=== PATIENT | female | born 1945 | race Caucasian/White ===

== ENCOUNTER → 2024-10-07 | Outpatient (BNVA) | payer MEDICARE, MEDICAID, SELFPAY | END | disposition home or self-care (01) | PROVIDERS: PCP Hospitalist; Referring Provider Hospitalist; Visit Provider Urology | DX: N39.46 Mixed incontinence (principal); N20.0 Calculus of kidney; I10 Essential (primary) hypertension; E11.9 Type 2 diabetes mellitus without complications; I48.91 Unspecified atrial fibrillation; K21.9 Gastro-esophageal reflux disease without esophagitis | CPT/HCPCS: 99212; G0463 ==

== ENCOUNTER → 2025-03-24 | Outpatient (BNVA) | payer MEDICARE, MEDICAID, SELFPAY | END | disposition home or self-care (01) | PROVIDERS: PCP Hospitalist; Referring Provider Hospitalist; Visit Provider Urology | DX: N20.0 Calculus of kidney (principal); R32 Unspecified urinary incontinence; Z87.440 Personal history of urinary (tract) infections; E11.9 Type 2 diabetes mellitus without complications; I11.9 Hypertensive heart disease without heart failure; G25.81 Restless legs syndrome; Z86.16 Personal history of COVID-19; E66.01 Morbid (severe) obesity due to excess calories; G80.9 Cerebral palsy, unspecified; Z99.3 Dependence on wheelchair; I48.91 Unspecified atrial fibrillation; K21.9 Gastro-esophageal reflux disease without esophagitis | CPT/HCPCS: 99212; G0463 ==